=== PATIENT | male | born 1975 | race American Indian/Alaskan Native ===

== ENCOUNTER 2017-02-10 16:00 | Emergency (ER) | payer SELFPAY ==
[2017-02-10 16:15] VITALS: BP 151/94
[2017-02-10] MEDS ORDERED: NARCAN 2 MG/2 ML ONE (16:47)
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
[2017-02-10] MEDS ORDERED: ZITHROMAX PO ONE (20:10)
[2017-02-10] MEDS ORDERED: ROCEPHIN IM ONE (20:10)
[2017-02-10] MEDS ORDERED: XYLOCAINE 1% MPF 5 mL INFILTRATI ONE (20:10)
[2017-02-10 20:26] LABS: Bilirubin,Urine NEG (Negative); Blood,Urine MOD (Negative); Ketones,Urine NEG (Negative); Leukocyte Esterase,Urine LG (Negative); Mucus,Urine 1+ /HPF; Nitrite,Urine NEG (Negative); Urobilinogen,Urine < 2.0 mg/dL (<2.0)
[2017-02-10 20:28] LABS: WBC,Urine > 182.0 /HPF (0.0-6.0)
== END 2017-02-10 20:58 | disposition home or self-care (01) ==
LOC: ED 16:00
DX: N39.0 Urinary tract infection, site not specified (principal); F17.200 Nicotine dependence, unspecified, uncomplicated
CPT/HCPCS: 81001; 87591; 96372; 99283; J0696; J2310

== ENCOUNTER 2017-04-30 16:06 | Emergency (ER) | payer OTHER ==
[2017-04-30 16:33] VITALS: BP 144/92
[2017-04-30] MEDS ORDERED: BOOSTRIX IM ONE (18:21)
[2017-04-30] MEDS ORDERED: MOTRIN PO ONE (18:22)
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
== END 2017-04-30 19:37 | disposition home or self-care (01) ==
LOC: ED 16:06
DX: S00.81XA Abrasion of other part of head, initial encounter (principal); Z88.8 Allergy status to other drugs, medicaments and biological substances; Y04.1XXA Assault by human bite, initial encounter; Y93.89 Activity, other specified; Y92.89 Other specified places as the place of occurrence of the external cause; Y99.8 Other external cause status
CPT/HCPCS: 90471; 90715; 99282

== ENCOUNTER 2018-04-07 19:24 | Emergency (ER) | payer OTHER ==
[2018-04-07 19:32] VITALS: BP 139/77
[2018-04-07] MEDS ORDERED: TORADOL IM ONE (19:50)
[2018-04-07] MEDS ORDERED: TORADOL ONE (19:52)
[2018-04-08] MEDS ORDERED: PERCOCET 5/325 PO ONE (00:27)
[2018-04-08] MEDS ORDERED: FLEXERIL PO ONE (00:31)
--- NOTE | 2018-04-08 00:40 | Emergency Department Report ---
ED Back Pain/Injury HPI - General Chief Complaint: Back Pain/Injury Stated Complaint: BACK PAIN Time Seen by Provider: 04/08/18 00:27 Source: patient Limitations: No Limitations - History of Present Illness Initial Comments: 42-year-old -Hung[place] male comes in complaining of right sided lower back pain onset yesterday. Patient denies any trauma or falls. 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 He reports that he made an attempt to go to work yesterday and started having lower back pain to the right he took an Aleve to take Tylenol and ibuprofen with no relief. Patient was given Toradol and triage and reports no relief of his pain. Patient denies any urinary or bowel incontinence or issues. MD Complaint: back pain -: days(s) (2) Similar Symptoms Previously: No Place: work Radiation: none Severity scale (0 -10): 8 Quality: sharp Consistency: constant Improves With: none Worsens With: movement Associated Symptoms: denies other symptoms Treatments Prior to Arrival: NSAIDS, acetaminophen - Related Data Previous Rx's Medication Instructions Recorded Last Taken Type Ciprofloxacin HCl [Ciprofloxacin 500 mg PO Q12HR #20 tab 02/10/17 Unknown Rx TAB] Amoxicillin/K Clav Tab [Augmentin 1 tab PO Q12HR 10 Days tab 04/30/17 Unknown Rx 875 mg] Cyclobenzaprine [Flexeril] 10 mg PO TID PRN #15 tablet 04/08/18 Unknown Rx Ibuprofen [Motrin 800 MG tab] 800 mg PO Q8HR PRN #30 tablet 04/08/18 Unknown Rx Nitrofurantoin Monohyd/M-Cryst 100 mg PO BID 7 Days #14 capsule 04/08/18 Unknown Rx [Macrobid 100 mg Capsule] Allergies Allergy/AdvReac Type Severity Reaction Status Date / Time promethazine HCl Allergy Swelling Verified 02/10/17 16:06 [From Phenergan] ED Review of Systems ROS: Stated complaint: BACK PAIN Other details as noted in HPI Gastrointestinal: denies: abdominal pain, nausea, diarrhea Genitourinary: denies: urgency, dysuria, frequency, hematuria, discharge Musculoskeletal: back pain Skin: denies: rash, lesions ED Past Medical Hx - Past Medical History Previous Medical History?: Yes Additional medical history: Bronchitis - Surgical History Past Surgical History?: No - Social History Smoking Status: Light Tobacco Smoker Substance Use Type: Alcohol - Medications Home Medications: Home Medications Medication Instructions Recorded Confirmed Last Taken Type Ciprofloxacin HCl [Ciprofloxacin 500 mg PO Q12HR #20 tab 02/10/17 Unknown Rx TAB] Amoxicillin/K Clav Tab [Augmentin 1 tab PO Q12HR 10 Days tab 04/30/17 Unknown Rx 875 mg] Cyclobenzaprine [Flexeril] 10 mg PO TID PRN #15 tablet 04/08/18 Unknown Rx Ibuprofen [Motrin 800 MG tab] 800 mg PO Q8HR PRN #30 tablet 04/08/18 Unknown Rx Nitrofurantoin Monohyd/M-Cryst 100 mg PO BID 7 Days #14 capsule 04/08/18 Unknown Rx [Macrobid 100 mg Capsule] ED Physical Exam - General Limitations: No Limitations General appearance: alert, in no apparent distress - Head Head exam: Present: atraumatic, normocephalic - ENT ENT exam: Present: mucous membranes moist - Respiratory Respiratory exam: Present: normal lung sounds bilaterally. Absent: respiratory distress - Cardiovascular Cardiovascular Exam: Present: regular rate, normal rhythm. Absent: systolic murmur, diastolic murmur, rubs, gallop - Back Exam Back exam: Present: CVA tenderness (R) - Expanded Back Exam Expanded Back exam: Positive Straight Leg Raise: Right (cross legged positive) - Neurological Exam Neurological exam: Present: alert, oriented X3 ED Course Vital Signs 04/07/18 04/07/18 04/07/18 19:24 19:40 19:55 Temperature 98.4 F 98.4 F Pulse Rate 79 78 Respiratory 16 16 18 Rate Blood Pressure 139/77 139/77 O2 Sat by Pulse 94 96 Oximetry ED Medical Decision Making - Radiology Data Radiology results: report reviewed, image reviewed FINAL REPORT EXAM: XR SPINE LUMBOSACRAL 2-3V HISTORY: back pain that is not responding to meds COMPARISON: None available. FINDINGS: Three views of the lumbar spine obtained. Lumbar vertebral body heights are preserved. Mild loss of disc height endplate osteophyte L5-S1 level. Mild loss of disc height endplate osteophyte T12-L1 level. Remaining disc heights are preserved. Pedicles are intact. No spondylolisthesis. IMPRESSION: Mild focal degenerative changes at the T12-L1 and L5-S1 levels. Transcribed By: LMA Dictated By: ENZO AVELAR MD Electronically Authenticated By: ENZO AVELAR MD Signed Date/Time: 04/08/1846 DD/ TD/TT: 04/08/1846 - Medical Decision Making Patient has been evaluated but this provider fast track. Patient is given Toradol 30 mg IM in triage with no relief. Flexeril 10 mg Percocet 5/325 2 tablets ordered for pain management. X-ray of back and urinalysis sent. Critical care attestation.: If time is entered above; I have spent that time in minutes in the direct care of this critically ill patient, excluding procedure time. ED Disposition Clinical Impression: Back pain Qualifiers: Back pain location: low back pain Chronicity: acute Back pain laterality: right Sciatica presence: without sciatica Qualified Code(s): M54.5 - Low back pain UTI (urinary tract infection) Qualifiers: Urinary tract infection type: acute cystitis Hematuria presence: without hematuria Qualified Code(s): N30.00 - Acute cystitis without hematuria Disposition: TO HOME OR SELFCARE Is pt being admited?: No Does the pt Need Aspirin: No Condition: Stable Instructions: Low Back Strain (ED), Back Pain (ED) Additional Instructions: Please take pain medication as prescribed. Please follow-up with the primary care provider if her symptoms persist or gets worse. Prescriptions: Cyclobenzaprine [Flexeril] 10 mg PO TID PRN #15 tablet PRN Reason: Muscle Spasm Ibuprofen [Motrin 800 MG tab] 800 mg PO Q8HR PRN #30 tablet PRN Reason: Pain , Severe (7-10) Nitrofurantoin Monohyd/M-Cryst [Macrobid 100 mg Capsule] 100 mg PO BID 7 Days # 14 capsule Referrals: PRIMARY CAREMD [Primary Care Provider] - 3-5 Days [facility] [Provider Group] - 3-5 Days Forms: Work/School Release Form(ED), Accompanied Note
--- NOTE | 2018-04-08 00:52 | XRay Report ---
FINAL REPORT EXAM: XR SPINE LUMBOSACRAL 2-3V HISTORY: back pain that is not responding to meds COMPARISON: None available. FINDINGS: Three views of the lumbar spine obtained. Lumbar vertebral body heights are preserved. Mild loss of disc height endplate osteophyte L5-S1 level. Mild loss of disc height endplate osteophyte T12-L1 level. Remaining disc heights are preserved. Pedicles are intact. No spondylolisthesis. IMPRESSION: Mild focal degenerative changes at the T12-L1 and L5-S1 levels.
[2018-04-08 01:50] LABS: Bilirubin,Urine NEG (Negative); Blood,Urine NEG (Negative); Color,Urine Yellow (Yellow); Hyaline Casts,Urine 16 /LPF; Mucus,Urine 3+ /HPF
== END 2018-04-08 02:25 | disposition home or self-care (01) ==
LOC: ED 19:24
DX: M54.5 Low back pain (principal); N30.00 Acute cystitis without hematuria; Z88.8 Allergy status to other drugs, medicaments and biological substances
CPT/HCPCS: 72100; 81001; 96372; 99284; J1885

== ENCOUNTER 2020-08-24 22:15 | Inpatient (IN) | payer SELFPAY ==
[2020-08-25 00:28] LABS: Lymphocytes # (Auto) 0.8 K/mm3 (1.2-5.4); Mean Corpuscular HGB Conc 29 % (32-34); Mean Corpuscular Volume 108 fl (84-94); Monocytes # (Auto) 0.6 K/mm3 (0.0-0.8); Monocytes % (Auto) 4.9 % (0.0-7.3); Platelet Count 195 K/mm3 (140-440); Red Blood Count 5.02 M/mm3 (3.65-5.03); Red Cell Distribution Width 14.6 % (13.2-15.2)
[2020-08-25 00:35] LABS: Hemoglobin 15.7 gm/dl (11.8-15.2)
[2020-08-25 00:36] LABS: Hematocrit 45.1 % (35.5-45.6)
[2020-08-25 00:47] LABS: Calcium 11.2 mg/dL (8.4-10.2)
[2020-08-25] MEDS ORDERED: SODIUM CHLORIDE 0.9% 1000 ML 2,000 ML ONE (01:25)
[2020-08-25 01:30] LABS: Bilirubin,Urine NEG (Negative); Blood,Urine SM (Negative); Color,Urine Colorless (Yellow); Mucus,Urine FEW /HPF; Protein,Urine <15 mg/dL mg/dL (Negative); Urobilinogen,Urine < 2.0 mg/dL (<2.0)
[2020-08-25] MEDS ORDERED: SODIUM CHLORIDE 0.9% 1000 ML 2,000 ML IV ONE (01:44)
[2020-08-25] MEDS ORDERED: INSULIN REGULAR, HUMAN 100 UNIT/ML 3ML VIAL IV ONE (01:44)
[2020-08-25] MEDS ORDERED: DEXTROSE 50% IN WATER (25GM) 50 ML SYRINGE IV PRN (01:44)
[2020-08-25] MEDS ORDERED: ONDANSETRON 4 MG/2 ML INJ IV ONE (01:44)
--- NOTE | 2020-08-25 01:51 | Emergency Department Report ---
ED General Adult HPI - General Chief complaint: Pain General Stated complaint: DEHYDRATED PUI?: No Time Seen by Provider: 08/25/20 01:22 Source: patient, RN notes reviewed, old records reviewed Mode of arrival: Ambulatory Limitations: No Limitations - History of Present Illness Initial comments: The patient was evaluated in the emergency department for symptoms described in the history of present illness. He/she was evaluated in the context of the global COVID-19 pandemic, which necessitated consideration that the patient m ight be at risk for infection with the virus that causes COVID-19. Institutional protocols and algorithms that pertain to the evaluation of patients at risk for COVID-19 are in a state of rapid change based on information released by regulatory bodies including the CDC and federal and state organizations. These policies and algorithms were followed during the patient's care in the emergency department. Please note that these policies, procedures and recommendations changed on a rapid basis. The patient is a 45-year-old gentleman. He is not known to myself previously. He does not have a primary care doctor he does not have chronic medical conditions. He denies fever, loss of taste, loss of taste smell, and Covid exposure. He presents to the ER today with a complaint of "I feel dehydrated." He endorses dry tongue, unintentional weight loss, polyuria, nausea, malaise and fatigue. He denies physical pain. He denies dysuria. Positive nausea. No diarrhea. No chest pain, no shortness of breath. Symptoms constant, do not radiate anywhere, do not have exacerbating relieving factors that he is aware of. -: Gradual, days(s) Consistency: constant Improves with: none Worsens with: none - Related Data Previous Rx's Medication Instructions Recorded Last Taken Type Ciprofloxacin HCl [Ciprofloxacin 500 mg PO Q12HR #20 tab 02/10/17 Unknown Rx TAB] Amoxicillin/K Clav Tab [Augmentin 1 tab PO Q12HR 10 Days tab 04/30/17 Unknown Rx 875 mg] Cyclobenzaprine [Flexeril] 10 mg PO TID PRN #15 tablet 04/08/18 Unknown Rx Ibuprofen [Motrin 800 MG tab] 800 mg PO Q8HR PRN #30 tablet 04/08/18 Unknown Rx Nitrofurantoin Monohyd/M-Cryst 100 mg PO BID 7 Days #14 capsule 04/08/18 Unknown Rx [Macrobid 100 mg Capsule] Amlodipine Besylate [Norvasc] 5 mg PO DAILY #30 tablet 12/15/19 Unknown Rx Fluticasone [Flonase] 1 spray NS QDAY #1 bottle 12/15/19 Unknown Rx Allergies Allergy/AdvReac Type Severity Reaction Status Date / Time promethazine HCl Allergy Swelling Verified 02/10/17 16:06 [From Phenergan] ED Review of Systems ROS: Stated complaint: DEHYDRATED Other details as noted in HPI Constitutional: malaise, weakness. denies: fever Eyes: denies: eye discharge ENT: denies: congestion Respiratory: denies: cough Cardiovascular: denies: chest pain Gastrointestinal: abdominal pain, nausea Genitourinary: denies: dysuria Musculoskeletal: denies: back pain Skin: denies: lesions Neurological: weakness Psychiatric: anxiety Hematological/Lymphatic: denies: easy bleeding ED Past Medical Hx - Past Medical History Previous Medical History?: Yes Additional medical history: Bronchitis - Surgical History Past Surgical History?: No - Social History Smoking Status: Current Every Day Smoker Substance Use Type: None - Medications Home Medications: Home Medications Medication Instructions Recorded Confirmed Last Taken Type Ciprofloxacin HCl [Ciprofloxacin 500 mg PO Q12HR #20 tab 02/10/17 Unknown Rx TAB] Amoxicillin/K Clav Tab [Augmentin 1 tab PO Q12HR 10 Days tab 04/30/17 Unknown Rx 875 mg] Cyclobenzaprine [Flexeril] 10 mg PO TID PRN #15 tablet 04/08/18 Unknown Rx Ibuprofen [Motrin 800 MG tab] 800 mg PO Q8HR PRN #30 tablet 04/08/18 Unknown Rx Nitrofurantoin Monohyd/M-Cryst 100 mg PO BID 7 Days #14 capsule 04/08/18 Unknown Rx [Macrobid 100 mg Capsule] Amlodipine Besylate [Norvasc] 5 mg PO DAILY #30 tablet 12/15/19 Unknown Rx Fluticasone [Flonase] 1 spray NS QDAY #1 bottle 12/15/19 Unknown Rx ED Physical Exam - General Limitations: No Limitations General appearance: alert, anxious, obese - Head Head exam: Present: atraumatic, normocephalic - Eye Eye exam: Present: normal appearance, EOMI. Absent: nystagmus - ENT ENT exam: Present: normal exam, normal orophraynx, mucous membranes dry, normal external ear exam - Neck Neck exam: Present: normal inspection, full ROM. Absent: tenderness, meningismus - Respiratory Respiratory exam: Present: normal lung sounds bilaterally. Absent: respiratory distress, wheezes, rales, rhonchi, stridor, decreased breath sounds - Cardiovascular Cardiovascular Exam: Present: normal rhythm, tachycardia, normal heart sounds. Absent: systolic murmur, diastolic murmur, rubs, gallop - GI/Abdominal GI/Abdominal exam: Present: soft. Absent: distended, tenderness, guarding, rebound, rigid, pulsatile mass - Rectal Rectal exam: Present: deferred - Extremities Exam Extremities exam: Present: normal inspection, full ROM, other (2+ pulses noted in the bilateral upper and lower extremities. There is no palpable cord. negative Homans sign. Muscular compartments are soft. The pelvis is stable.). Absent: pedal edema, calf tenderness - Back Exam Back exam: Present: normal inspection, full ROM. Absent: tenderness, CVA tenderness (R), CVA tenderness (L), paraspinal tenderness, vertebral tenderness - Neurological Exam Neurological exam: Present: alert, other (No facial droop. Tongue midline. Extraocular movements intact bilaterally. Facial sensation intact to light touch in V1, V2, V3 distribution bilaterally. 5 and a 5 strength in 4 extremities. Sensation intact to light touch in 4 extremities.) - Psychiatric Psychiatric exam: Present: anxious - Skin Skin exam: Present: warm, dry, intact, normal color. Absent: rash ED Course Vital Signs 08/24/20 23:36 Temperature 98.4 F Pulse Rate 114 H Respiratory 18 Rate Blood Pressure 151/108 O2 Sat by Pulse 95 Oximetry ED Medical Decision Making - Lab Data Result diagrams: 08/24/20 23:50 08/25/20 01:59 Vital Signs 08/24/20 23:36 Temperature 98.4 F Pulse Rate 114 H Respiratory 18 Rate Blood Pressure 151/108 O2 Sat by Pulse 95 Oximetry Lab Results 08/24/20 08/24/20 08/24/20 Range/Units 23:50 23:50 Unknown WBC 11.5 H (4.5-11.0) K/mm3 RBC 5.02 (3.65-5.03) M/mm3 Hgb 15.7 H (11.8-15.2) gm/dl Hct 45.1 (35.5-45.6) % MCV 108 H (84-94) fl MCH 31 (28-32) pg MCHC 29 L (32-34) % RDW 14.6 (13.2-15.2) % Plt Count 195 (140-440) K/mm3 Lymph % (Auto) 7.0 L (13.4-35.0) % [place] % (Auto) 4.9 (0.0-7.3) % Eos % (Auto) 0.0 (0.0-4.3) % Baso % (Auto) 0.0 (0.0-1.8) % Lymph # (Auto) 0.8 L (1.2-5.4) K/mm3 [place] # (Auto) 0.6 (0.0-0.8) K/mm3 Eos # (Auto) 0.0 (0.0-0.4) K/mm3 Baso # (Auto) 0.0 (0.0-0.1) K/mm3 Seg Neutrophils % 88.1 H (40.0-70.0) % Seg Neutrophils # 10.1 H (1.8-7.7) K/mm3 Sodium 123 L (137-145) mmol/L Potassium 5.2 H (3.6-5.0) mmol/L Chloride 79.0 L (98-107) mmol/L Carbon Dioxide 25 (22-30) mmol/L Anion Gap 24 mmol/L BUN 32 H (9-20) mg/dL Creatinine 1.8 H (0.8-1.3) mg/dL Estimated GFR 50 ml/min BUN/Creatinine Ratio 18 % Glucose 1624 H* (75-100) mg/dL Calcium 11.2 H (8.4-10.2) mg/dL Urine Color Colorless (Yellow) Urine Turbidity Clear (Clear) Urine pH 5.0 (5.0-7.0) Ur Specific [place] 1.027 (1.003-1.030) Urine Protein <15 mg/dl (Negative) mg/dL Urine Glucose (UA) >=500 (Negative) mg/dL Urine Ketones Tr (Negative) mg/dL Urine Blood Sm (Negative) Urine Nitrite Neg (Negative) Urine Bilirubin Neg (Negative) Urine Urobilinogen < 2.0 (<2.0) mg/dL Ur Leukocyte Esterase Neg (Negative) Urine WBC (Auto) 4.0 (0.0-6.0) /HPF Urine RBC (Auto) 1.0 (0.0-6.0) /HPF Urine Mucus Few /HPF - EKG Data -: EKG Interpreted by Me EKG shows normal: sinus rhythm Rate: normal - EKG Data When compared to previous EKG there are: previous EKG unavailable 08/25/20 01:52 Sinus rhythm, 93 bpm, normal axis, normal intervals, minimal motion artifact, borderline high left ventricular voltage, the EKG is not a STEMI, there is no EKG available for comparison. - Medical Decision Making Differential diagnosis, including but not limited to: Diabetic ketoacidosis, h yperosmolar state, renal insufficiency, dehydration, electrolyte derangement Assessment and plan: 45-year-old gentleman with dehydration, dry mucous membranes, polyuria, polydipsia, unintentional weight loss, glucose of 1600, anion gap, renal insufficiency. Meets criteria for hospitalization secondary to aforementioned metabolic derangement. He is afebrile, with reassuring vital signs with the exception of tachycardia, speaking in full sentences, protecting his airway, with a nonfocal motor examination. Do not clinically suspect Covid pneumonia at this time. We have recommended admission to the medical service for initiation of IV fluids and insulin drip. The patient is amenable to this plan of care. Hospital physician, Dr. Stephanie Milan to admit Given normal mentation, I suspect that patient is a chronic undiagnosed diabetic, it sounds like the exacerbating/inciting factor here are recent dietary indiscretions. Hyponatremia is likely pseudohyponatremia, likely secondary to marked hyperglycemia. Critical Care Time: Yes Critical care time in (mins) excluding proc time.: 35 Critical care attestation.: If time is entered above; I have spent that time in minutes in the direct care of this critically ill patient, excluding procedure time. ED Disposition Clinical Impression: DKA (diabetic ketoacidoses), Renal insufficiency, Dehydration Disposition: OP ADMIT IP TO THIS HOSP Is pt being admited?: Yes Does the pt Need Aspirin: No Condition: Critical
[2020-08-25] MEDS ORDERED: D5W/0.45% NACL/KCL 20 MEQ 20 MEQ/1,000 ML BAG IV SCH (02:00)
[2020-08-25] MEDS ORDERED: INSULIN REGULAR, HUMAN 100 UNITS in SODIUM CHLORIDE 0.9% 99 ML IV SCH (02:00)
[2020-08-25] MEDS ORDERED: INSULIN REGULAR, HUMAN 100 UNIT/ML 3ML VIAL ONE (02:26)
[2020-08-25] MEDS ORDERED: ONDANSETRON 4 MG/2 ML INJ ONE (02:27)
[2020-08-25 02:42] LABS: Calcium 10.8 mg/dL (8.4-10.2)
[2020-08-25] MEDS ORDERED: MORPHINE 2 MG/1 ML INJ IV PRN (03:02)
[2020-08-25] MEDS ORDERED: ONDANSETRON 4 MG/2 ML INJ IV PRN (03:02)
--- NOTE | 2020-08-25 03:11 | History and Physical Report ---
History of Present Illness Date of examination: 08/25/20 Date of admission: 08/25/20 01:51 Chief complaint: Malaise Fatigue History of present illness: 45-year-old -[place] male with no significant past medical problems presenting to the emergency room today with complaints of been dehydrated. He states he has been having dry mouth, polyuria, polydipsia, nausea and vomiting and generalized malaise. He also indicates that he has been having unintentiona l weight loss. He denies any fever or chills, no chest pain or shortness of breath, no headache or dizziness. 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 Denies any sick contacts and no recent travel. Denies any contact with anyone with COVID-19. Upon arrival in the emergency room today blood sugar was found to be over 1000. He was found to be in DKA. He admits that both of his parents diabetic. Patient has been started on insulin drip and and IV fluid. Past History Past Medical History: No medical history Past Surgical History: No surgical history Social history: no significant social history Family history: diabetes (In both Parents) Medications and Allergies Allergies Allergy/AdvReac Type Severity Reaction Status Date / Time promethazine HCl Allergy Swelling Verified 02/10/17 16:06 [From Phenergan] Home Medications Medication Instructions Recorded Confirmed Last Taken Type Ciprofloxacin HCl [Ciprofloxacin 500 mg PO Q12HR #20 tab 02/10/17 Unknown Rx TAB] Amoxicillin/K Clav Tab [Augmentin 1 tab PO Q12HR 10 Days tab 04/30/17 Unknown Rx 875 mg] Cyclobenzaprine [Flexeril] 10 mg PO TID PRN #15 tablet 04/08/18 Unknown Rx Ibuprofen [Motrin 800 MG tab] 800 mg PO Q8HR PRN #30 tablet 04/08/18 Unknown Rx Nitrofurantoin Monohyd/M-Cryst 100 mg PO BID 7 Days #14 capsule 04/08/18 Unknown Rx [Macrobid 100 mg Capsule] Amlodipine Besylate [Norvasc] 5 mg PO DAILY #30 tablet 12/15/19 Unknown Rx Fluticasone [Flonase] 1 spray NS QDAY #1 bottle 12/15/19 Unknown Rx Active Meds: Active Medications Dextrose (D50w (25gm) Syringe) 0 ml IV Q30MIN PRN; Protocol PRN Reason: Hypoglycemia Heparin Sodium (Porcine) (Heparin) 5,000 unit SUB-Q Q8HR [facility] Insulin Human Regular 100 (units/ Sodium Chloride) 100 mls @ 1 mls/hr IV TITR [facility]; Protocol Last Admin: 08/25/20 02:31 Dose: 1 units/hr, 1 mls/hr Documented by: Potassium Chloride/Dextrose/Sod Cl (D5w/0.45% Nacl/Kcl 20 Meq) 20 meq in 1,000 mls @ 125 mls/hr IV DIRECT LOGAN Sodium Chloride (Nacl 0.9% 1000 Ml) 1,000 mls @ 150 mls/hr IV DIRECT LOGAN Morphine Sulfate (Morphine) 2 mg IV Q4H PRN PRN Reason: Pain, Moderate (4-6) Ondansetron HCl (Zofran) 4 mg IV Q8H PRN PRN Reason: Nausea And Vomiting Sodium Chloride (Sodium Chloride Flush Syringe 10 Ml) 10 ml IV BID LOGAN Sodium Chloride (Sodium Chloride Flush Syringe 10 Ml) 10 ml IV PRN PRN PRN Reason: LINE FLUSH Review of Systems Constitutional: malaise, lethargy, no fever, no chills Ears, nose, mouth and throat: no nasal congestion, no sore throat Cardiovascular: no chest pain, no palpitations Respiratory: no cough, no shortness of breath, no wheezing Gastrointestinal: nausea, vomiting, no abdominal pain, no diarrhea Genitourinary Male: urinary frequency, no dysuria, no hematuria, no nocturia Musculoskeletal: no neck pain, no low back pain Integumentary: no rash, no pruritis Neurological: no headaches, no confusion Psychiatric: no anxiety, no depression Endocrine: polydipsia, polyuria, weight change, fatigue Exam - Constitutional Vitals: Temp Pulse Resp BP Pulse Ox 98.4 F 114 H 18 151/108 95 08/24/20 23:36 08/24/20 23:36 08/24/20 23:36 08/24/20 23:36 08/24/20 23:36 General appearance: Present: no acute distress, well-nourished, other (Dry Oral Mucosa) - EENT Eyes: Present: PERRL, EOM intact. Absent: scleral icterus ENT: hearing intact, clear oral mucosa, dentition normal - Neck Neck: Present: supple, normal ROM - Respiratory Respiratory effort: normal Respiratory: bilateral: CTA - Cardiovascular Rhythm: regular Heart Sounds: Present: S1 & S2. Absent: gallop, systolic murmur, diastolic murmur, rub - Extremities Extremities: no ischemia, pulses intact, pulses symmetrical, No edema, Full ROM Peripheral Pulses: within normal limits - Abdominal General gastrointestinal: Present: soft, non-tender, non-distended, normal bowel sounds. Absent: mass - Integumentary Integumentary: Present: clear, warm, dry. Absent: rash - Musculoskeletal Musculoskeletal: strength equal bilaterally - Psychiatric Psychiatric: appropriate mood/affect, intact judgment & insight, memory intact, cooperative - Neurologic Neurologic: CNII-XII intact, no focal deficits, moves all extremities Results - Labs CBC & Chem 7: 08/24/20 23:50 08/25/20 03:48 Labs: Abnormal lab results 08/24/20 08/24/20 08/25/20 Range/Units 23:50 23:50 01:59 WBC 11.5 H (4.5-11.0) K/mm3 Hgb 15.7 H (11.8-15.2) gm/dl MCV 108 H (84-94) fl MCHC 29 L (32-34) % Lymph % (Auto) 7.0 L (13.4-35.0) % Lymph # (Auto) 0.8 L (1.2-5.4) K/mm3 Seg Neutrophils % 88.1 H (40.0-70.0) % Seg Neutrophils # 10.1 H (1.8-7.7) K/mm3 VBG pH (7.320-7.420) Sodium 123 L (137-145) mmol/L Potassium 5.2 H (3.6-5.0) mmol/L Chloride 79.0 L (98-107) mmol/L BUN 32 H (9-20) mg/dL Creatinine 1.8 H (0.8-1.3) mg/dL Glucose 1624 H* (75-100) mg/dL Calcium 11.2 H (8.4-10.2) mg/dL Phosphorus (2.5-4.5) mg/dL Magnesium 2.50 H (1.7-2.3) mg/dL Total Creatine Kinase 574 H (55-170) units/L 08/25/20 08/25/20 Range/Units 01:59 01:59 WBC (4.5-11.0) K/mm3 Hgb (11.8-15.2) gm/dl MCV (84-94) fl MCHC (32-34) % Lymph % (Auto) (13.4-35.0) % Lymph # (Auto) (1.2-5.4) K/mm3 Seg Neutrophils % (40.0-70.0) % Seg Neutrophils # (1.8-7.7) K/mm3 VBG pH 7.316 L (7.320-7.420) Sodium 124 L (137-145) mmol/L Potassium 5.3 H (3.6-5.0) mmol/L Chloride 82.5 L (98-107) mmol/L BUN 31 H (9-20) mg/dL Creatinine 1.7 H (0.8-1.3) mg/dL Glucose 1405 H* (75-100) mg/dL Calcium 10.8 H (8.4-10.2) mg/dL Phosphorus 7.00 H (2.5-4.5) mg/dL Magnesium 2.60 H (1.7-2.3) mg/dL Total Creatine Kinase (55-170) units/L Assessment and Plan - Patient Problems (1) DKA (diabetic ketoacidoses) Current Visit: Yes Status: Acute Plan to address problem: Patient admitted to the intensive care unit. Started on insulin drip and IV fluid. (2) Renal insufficiency Current Visit: Yes Status: Acute Plan to address problem: We will monitor BUN and creatinine. We will continue IV fluid hydration. (3) DVT prophylaxis Current Visit: Yes Status: Acute Plan to address problem: Patient placed on subcutaneous heparin. (4) Full code status Current Visit: Yes Status: Acute
[2020-08-25] MEDS ORDERED: SODIUM CHLORIDE 0.9% 1000 ML 1,000 ML IV SCH ×3 (03:15→22:30)
[2020-08-25 04:17] LABS: BUN/Creatinine Ratio 19; Blood Urea Nitrogen 28 mg/dL (9-20); Calcium 10.6 mg/dL (8.4-10.2); Hemolysis Index 9
[2020-08-25] MEDS ORDERED: SODIUM CHLORIDE 0.9% 1000 ML 1,000 ML ONE (04:32)
[2020-08-25 05:15] LABS: Chol/HDL Ratio 3.71 %
[2020-08-25 06:35] LABS: Calcium 11.4 mg/dL (8.4-10.2)
[2020-08-25] MEDS ORDERED: HEPARIN 5,000 UNIT/1 ML VIAL ONE ×2 (06:43→16:19)
[2020-08-25] MEDS: HEPARIN 5,000 UNIT/1 ML VIAL SUB-Q SCH ×3 (06:50→22:50)
[2020-08-25 11:21] LABS: BUN/Creatinine Ratio 17; Blood Urea Nitrogen 25 mg/dL (9-20); Calcium 11.2 mg/dL (8.4-10.2); Hemolysis Index 11
[2020-08-25 11:22] LABS: BUN/Creatinine Ratio 16; Blood Urea Nitrogen 23 mg/dL (9-20); Calcium 11.1 mg/dL (8.4-10.2); Hemolysis Index 18
[2020-08-25] MEDS: amLODIPine 10 MG TAB PO SCH (12:04)
--- NOTE | 2020-08-25 16:05 | Progress Note ---
Assessment and Plan - Patient Problems (1) DKA (diabetic ketoacidoses) Current Visit: Yes Status: Acute Qualifiers: Diabetes mellitus type: type 1 Plan to address problem: Much improved Discontinue IV Insulin IV fluids Started on Novolin 70/30 25 units bid Educated on Diabetes Mellitus Diet exercise advised (2) Dehydration Current Visit: Yes Status: Acute Plan to address problem: IV fluids for now (3) MATEUSZ (acute kidney injury) Current Visit: Yes Status: Acute Plan to address problem: IV fluids for now Improved (4) Hyponatremia Current Visit: Yes Status: Acute Plan to address problem: Improved (5) Hyperkalemia Current Visit: Yes Status: Acute Plan to address problem: Improved (6) DVT prophylaxis Current Visit: Yes Status: Acute Plan to address problem: Heparin and GI prophylaxis Subjective Date of service: 08/25/20 Principal diagnosis: DKA Interval history: 45-year-old -[place] male with no significant past medical problems presenting to the emergency room today with complaints of been dehydrated. He states he has been having dry mouth, polyuria, polydipsia, nausea and vomiting and generalized malaise. He also indicates that he has been having unintentional weight loss. He denies any fever or chills, no chest pain or shortness of breath, no headache or dizziness. 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 Denies any sick contacts and no recent travel. Denies any contact with anyone with COVID-19. Upon arrival in the emergency room today blood sugar was found to be over 1000. He was found to be in DKA. He admits that both of his parents diabetic. Patient has been started on insulin drip and and IV fluid. Day #2 08/25/2020 Patient symptomatically better Some blurring of vision Less nausea, no vomiting Started on clear liquids Objective - Constitutional Vitals: Vital Signs - 12hr 08/25/20 08/25/20 08/25/20 04:00 04:30 05:00 Pulse Rate 82 Blood Pressure 131/81 122/68 116/68 O2 Sat by Pulse 93 92 92 Oximetry 08/25/20 08/25/20 08/25/20 05:30 06:00 06:30 Pulse Rate 76 Blood Pressure 122/87 111/73 136/78 O2 Sat by Pulse 88 93 Oximetry 08/25/20 12:04 Pulse Rate 105 H Blood Pressure 178/111 O2 Sat by Pulse Oximetry General appearance: Present: no acute distress, well-nourished - EENT Eyes: PERRL, EOM intact ENT: hearing intact, clear oral mucosa Ears: bilateral: normal - Neck Neck: supple, normal ROM - Respiratory Respiratory effort: normal Respiratory: bilateral: CTA - Breasts Breasts: normal - Cardiovascular Heart rate: 78 Rhythm: regular Heart Sounds: Present: S1 & S2. Absent: gallop, rub Extremities: pulses intact, No edema, normal color, Full ROM - Gastrointestinal General gastrointestinal: Present: soft, non-tender, non-distended, normal bowel sounds - Genitourinary Male genitourinary: normal - Integumentary Integumentary: clear, warm, dry - Musculoskeletal Musculoskeletal: 1, strength equal bilaterally - Neurologic Neurologic: moves all extremities - Psychiatric Psychiatric: memory intact, appropriate mood/affect, intact judgment & insight - Labs CBC & Chem 7: 08/24/20 23:50 08/26/20 01:50 Labs: Abnormal lab results 08/24/20 08/24/20 08/25/20 Range/Units 23:50 23:50 01:59 WBC 11.5 H (4.5-11.0) K/mm3 Hgb 15.7 H (11.8-15.2) gm/dl MCV 108 H (84-94) fl MCHC 29 L (32-34) % Lymph % (Auto) 7.0 L (13.4-35.0) % Lymph # (Auto) 0.8 L (1.2-5.4) K/mm3 Seg Neutrophils % 88.1 H (40.0-70.0) % Seg Neutrophils # 10.1 H (1.8-7.7) K/mm3 VBG pH (7.320-7.420) Sodium 123 L (137-145) mmol/L Potassium 5.2 H (3.6-5.0) mmol/L Chloride 79.0 L (98-107) mmol/L BUN 32 H (9-20) mg/dL Creatinine 1.8 H (0.8-1.3) mg/dL Glucose 1624 H* (75-100) mg/dL POC Glucose (70-105) mg/dL Hemoglobin A1c > 17.0 H (4-6) % Calcium 11.2 H (8.4-10.2) mg/dL Phosphorus (2.5-4.5) mg/dL Magnesium (1.7-2.3) mg/dL Total Creatine Kinase (55-170) units/L Triglycerides (2-149) mg/dL 08/25/20 08/25/20 08/25/20 Range/Units 01:59 01:59 01:59 WBC (4.5-11.0) K/mm3 Hgb (11.8-15.2) gm/dl MCV (84-94) fl MCHC (32-34) % Lymph % (Auto) (13.4-35.0) % Lymph # (Auto) (1.2-5.4) K/mm3 Seg Neutrophils % (40.0-70.0) % Seg Neutrophils # (1.8-7.7) K/mm3 VBG pH 7.316 L (7.320-7.420) Sodium 124 L (137-145) mmol/L Potassium 5.3 H (3.6-5.0) mmol/L Chloride 82.5 L (98-107) mmol/L BUN 31 H (9-20) mg/dL Creatinine 1.7 H (0.8-1.3) mg/dL Glucose 1405 H* (75-100) mg/dL POC Glucose (70-105) mg/dL Hemoglobin A1c (4-6) % Calcium 10.8 H (8.4-10.2) mg/dL Phosphorus 7.00 H (2.5-4.5) mg/dL Magnesium 2.50 H 2.60 H (1.7-2.3) mg/dL Total Creatine Kinase 574 H (55-170) units/L Triglycerides (2-149) mg/dL 08/25/20 08/25/20 08/25/20 Range/Units 03:48 03:48 05:58 WBC (4.5-11.0) K/mm3 Hgb (11.8-15.2) gm/dl MCV (84-94) fl MCHC (32-34) % Lymph % (Auto) (13.4-35.0) % Lymph # (Auto) (1.2-5.4) K/mm3 Seg Neutrophils % (40.0-70.0) % Seg Neutrophils # (1.8-7.7) K/mm3 VBG pH (7.320-7.420) Sodium 133 L D (137-145) mmol/L Potassium (3.6-5.0) mmol/L Chloride 95.6 L (98-107) mmol/L BUN 28 H 26 H (9-20) mg/dL Creatinine 1.5 H 1.6 H (0.8-1.3) mg/dL Glucose 913 H* 647 H* (75-100) mg/dL POC Glucose (70-105) mg/dL Hemoglobin A1c (4-6) % Calcium 10.6 H 11.4 H (8.4-10.2) mg/dL Phosphorus (2.5-4.5) mg/dL Magnesium 2.80 H (1.7-2.3) mg/dL Total Creatine Kinase (55-170) units/L Triglycerides 157 H (2-149) mg/dL 08/25/20 08/25/20 08/25/20 Range/Units 07:57 10:28 11:06 WBC (4.5-11.0) K/mm3 Hgb (11.8-15.2) gm/dl MCV (84-94) fl MCHC (32-34) % Lymph % (Auto) (13.4-35.0) % Lymph # (Auto) (1.2-5.4) K/mm3 Seg Neutrophils % (40.0-70.0) % Seg Neutrophils # (1.8-7.7) K/mm3 VBG pH (7.320-7.420) Sodium 146 H 148 H (137-145) mmol/L Potassium (3.6-5.0) mmol/L Chloride 108.3 H (98-107) mmol/L BUN 25 H 23 H (9-20) mg/dL Creatinine 1.5 H 1.4 H (0.8-1.3) mg/dL Glucose 429 H 252 H (75-100) mg/dL POC Glucose 247 H (70-105) mg/dL Hemoglobin A1c (4-6) % Calcium 11.2 H 11.1 H (8.4-10.2) mg/dL Phosphorus (2.5-4.5) mg/dL Magnesium (1.7-2.3) mg/dL Total Creatine Kinase (55-170) units/L Triglycerides (2-149) mg/dL 08/25/20 08/25/20 08/25/20 Range/Units 12:11 13:10 14:54 WBC (4.5-11.0) K/mm3 Hgb (11.8-15.2) gm/dl MCV (84-94) fl MCHC (32-34) % Lymph % (Auto) (13.4-35.0) % Lymph # (Auto) (1.2-5.4) K/mm3 Seg Neutrophils % (40.0-70.0) % Seg Neutrophils # (1.8-7.7) K/mm3 VBG pH (7.320-7.420) Sodium (137-145) mmol/L Potassium (3.6-5.0) mmol/L Chloride (98-107) mmol/L BUN (9-20) mg/dL Creatinine (0.8-1.3) mg/dL Glucose (75-100) mg/dL POC Glucose 153 H 224 H 272 H (70-105) mg/dL Hemoglobin A1c (4-6) % Calcium (8.4-10.2) mg/dL Phosphorus (2.5-4.5) mg/dL Magnesium (1.7-2.3) mg/dL Total Creatine Kinase (55-170) units/L Triglycerides (2-149) mg/dL
[2020-08-25] MEDS ORDERED: HYDROmorphone 1 MG/1 ML INJ IV PRN (16:07)
[2020-08-25] MEDS ORDERED: HYDROmorphone 1 MG/1 ML INJ ONE (16:52)
[2020-08-25] MEDS: INSULIN NPH/REGULAR 70/30 INJ SUB-Q SCH (17:38)
[2020-08-25 19:08] LABS: BUN/Creatinine Ratio 15; Blood Urea Nitrogen 19 mg/dL (9-20); Calcium 9.9 mg/dL (8.4-10.2); Hemolysis Index 26
[2020-08-25] MEDS: VALSARTAN 40 MG TAB PO SCH ×2 (19:44→22:26)
[2020-08-25] MEDS ORDERED: INSULIN LISPRO 100 UNIT/ML VIAL 3 mL SUB-Q ONE (22:18)
[2020-08-25] MEDS: INSULIN LISPRO 100 UNIT/ML VIAL 3 mL SUB-Q SCH (22:26)
[2020-08-25] MEDS: carvediloL 12.5 MG TAB FEEDTUBE SCH (22:26)
[2020-08-25] MEDS ORDERED: INSULIN GLARGINE 100 UNITS/ML SUB-Q ONE (23:00)
[2020-08-26] MEDS: INSULIN LISPRO 100 UNIT/ML VIAL 3 mL SUB-Q SCH ×4 (00:30→12:32)
[2020-08-26 02:47] LABS: BUN/Creatinine Ratio 13; Blood Urea Nitrogen 16 mg/dL (9-20); Calcium 9.4 mg/dL (8.4-10.2); Hemolysis Index 10
[2020-08-26] MEDS: HEPARIN 5,000 UNIT/1 ML VIAL SUB-Q SCH ×2 (06:34→13:34)
[2020-08-26] MEDS: INSULIN NPH/REGULAR 70/30 INJ SUB-Q SCH (08:40)
[2020-08-26] MEDS: carvediloL 12.5 MG TAB FEEDTUBE SCH (09:01)
[2020-08-26] MEDS: VALSARTAN 40 MG TAB PO SCH (09:02)
[2020-08-26] MEDS: amLODIPine 10 MG TAB PO SCH (09:03)
--- NOTE | 2020-08-26 11:59 | Discharge Summary ---
Providers - Providers Date of Admission: 08/25/20 01:51 Date of discharge: 08/26/20 Attending physician: CLAUDE DIEGO 08/25/20 03:02 Consult to Dietitian/Nutrition [CONS] Routine Physician Instructions: Reason For Exam: Reason for Consult: Diet education Primary care physician: [employer] Hospitalization Condition: Critical Hospital course: Subjective Date of service: 08/26/20 Principal diagnosis: DKA Interval history: 45-year-old -[place] male with no significant past medical problems presenting to the emergency room today with complaints of been dehydrated. He states he has been having dry mouth, polyuria, polydipsia, nausea and vomiting and generalized malaise. He also indicates that he has been having unintentional weight loss. He denies any fever or chills, no chest pain or shortness of breath, no headache or dizziness. 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 Denies any sick contacts and no recent travel. Denies any contact with anyone with COVID-19. Upon arrival in the emergency room today blood sugar was found to be over 1000. He was found to be in DKA. He admits that both of his parents diabetic. Patient has been started on insulin drip and and IV fluid. Day #2 08/25/2020 Patient symptomatically better Some blurring of vision Less nausea, no vomiting Started on clear liquids Day #3 08/26/2020 Patient feeling much better Blood glucose levels in the mid 300s Patient educated by me about diabetic ketoacidosis and management of insulin- dependent diabetes Patient was advised regular exercise and diet Patient to be discharged on Novolin 70/30 30 units twice a day and Metformin 500 twice a day and to follow-up with primary care in 1 week. Assessment and Plan - Patient Problems (1) DKA (diabetic ketoacidoses) Current Visit: Yes Status: Acute Qualifiers: Diabetes mellitus type: type 1 Plan to address problem: Much improved Discontinue IV Insulin IV fluids Started on Novolin 70/30 25 units bid Educated on Diabetes Mellitus Diet exercise advised (2) Dehydration Current Visit: Yes Status: Acute Plan to address problem: IV fluids for now (3) MATEUSZ (acute kidney injury) Current Visit: Yes Status: Acute Plan to address problem: IV fluids for now Improved (4) Hyponatremia Current Visit: Yes Status: Acute Plan to address problem: Improved (5) Hyperkalemia Current Visit: Yes Status: Acute Plan to address problem: Improved (6) DVT prophylaxis Current Visit: Yes Status: Acute Plan to address problem: Heparin and GI prophylaxis Disposition: DC-01 TO HOME OR SELFCARE - Discharge Diagnoses (1) DKA (diabetic ketoacidoses) Status: Acute Qualifiers: Diabetes mellitus type: type 1 (2) Dehydration Status: Acute (3) MATEUSZ (acute kidney injury) Status: Acute (4) Hyponatremia Status: Acute (5) Hyperkalemia Status: Acute (6) DVT prophylaxis Status: Acute Core Measure Documentation - Palliative Care Palliative Care/ Comfort Measures: Not Applicable - Core Measures Any of the following diagnoses?: none Exam - Constitutional Vitals: Temp Pulse Resp BP Pulse Ox 98.6 F 87 17 128/61 99 08/26/20 07:39 08/26/20 10:00 08/26/20 10:00 08/26/20 09:03 08/26/20 10:00 General appearance: Present: no acute distress, well-nourished - EENT Eyes: Present: PERRL ENT: hearing intact, clear oral mucosa - Neck Neck: Present: supple, normal ROM - Respiratory Respiratory effort: normal Respiratory: bilateral: CTA - Cardiovascular Heart rate: 78 Rhythm: regular Heart Sounds: Present: S1 & S2. Absent: rub, click - Extremities Extremities: pulses symmetrical, No edema Peripheral Pulses: within normal limits - Abdominal General gastrointestinal: Present: soft, non-tender, non-distended, normal bowel sounds Male genitourinary: Present: normal - Rectal Rectal Exam: deferred - Integumentary Integumentary: Present: clear, warm, dry - Musculoskeletal Musculoskeletal: gait normal, strength equal bilaterally - Psychiatric Psychiatric: appropriate mood/affect, intact judgment & insight - Neurologic Neurologic: CNII-XII intact, moves all extremities - Allied Health Allied health notes reviewed: nursing, case management Plan Activity: no restrictions Diet: diabetic Follow up with: PRIMARY CAREMD [Primary Care Provider] - 3-5 Days
[2020-08-26 12:24] VITALS: BP 131/78
== END 2020-08-26 14:21 | disposition home or self-care (01) | DRG 638 ==
LOC: ED 22:15 → CC1 08-25 01:51 → 4A 08-25 15:45
PROVIDERS: ADMIT Internal Medicine Geriatric Medicine; ATTEND Internal Medicine
DX: E10.10 Type 1 diabetes mellitus with ketoacidosis without coma (principal); N17.9 Acute kidney failure, unspecified; E87.1 Hypo-osmolality and hyponatremia; E86.0 Dehydration; Z88.8 Allergy status to other drugs, medicaments and biological substances; Z83.3 Family history of diabetes mellitus; Z79.4 Long term (current) use of insulin; E87.5 Hyperkalemia
CPT/HCPCS: 36415; 80048; 80061; 81001; 82550; 82805; 82947; 82962; 83036; 83735; 84100; 84443; 85025; 93005; 96372; 96374; 96375; G0378; J1170; J1644; J1815; J2405; J7030

== ENCOUNTER 2021-05-22 09:10 | Emergency (ER) | payer SELFPAY ==
--- NOTE | 2021-05-22 10:32 | Emergency Department Report ---
ED Lower Extremity HPI - General Chief Complaint: Extremity Injury, Lower Stated Complaint: NEEDS A WORK RELEASE/RT FOOT INJURY Time Seen by Provider: 05/22/21 10:25 Source: patient Mode of arrival: Ambulatory Limitations: No Limitations - History of Present Illness Initial Comments: 45-year-old male presents to the ER today with complaints of right foot pain. Patient states that he injured his right foot 2 days ago. Patient states that he was walking down the steps in his home and when he got to the bottom 2 steps his flip-flop slipped out from his feet causing him to twist his foot. He reports pain mainly to the lateral aspect of the foot. He states that he stayed home from work yesterday, and iced it and stretched it and he states that the pain has improved. He states that when he try to go back to work today, they would not approve him to come back until he had it checked out and got clearance to go back to work. He denies any apparent bruising or swelling. He denies any prior injury, surgery to his foot. He reports no other symptoms at this time. MD Complaint: foot injury -: days(s) (2) - Related Data Previous Rx's Medication Instructions Recorded Last Taken Type Ciprofloxacin HCl [Ciprofloxacin 500 mg PO Q12HR #20 tab 02/10/17 Unknown Rx TAB] Ibuprofen [Motrin 800 MG tab] 800 mg PO Q8HR PRN #30 tablet 04/08/18 Unknown Rx Amlodipine Besylate [Norvasc] 5 mg PO DAILY #30 tablet 12/15/19 Unknown Rx Aspirin [Aspirin BABY CHEW TAB] 81 mg PO QDAY #100 tab.chew 08/26/20 Unknown Rx Insulin NPH Hum/Reg Insulin Hm 30 unit SQ BID #2 vial 08/26/20 Unknown Rx [Novolin 70-30 100 Unit/ml Vial] Valsartan [Diovan] 160 mg PO Q12HR #60 tablet 08/26/20 Unknown Rx carvediloL [Coreg] 12.5 mg FEEDTUBE Q12HR 30 Days #60 08/26/20 Unknown Rx tablet metFORMIN [Glucophage] 500 mg PO BID #60 tablet 08/26/20 Unknown Rx Allergies Allergy/AdvReac Type Severity Reaction Status Date / Time promethazine HCl Allergy Swelling Verified 05/22/21 09:13 [From Phenergan] ED Review of Systems ROS: Stated complaint: NEEDS A WORK RELEASE/RT FOOT INJURY Other details as noted in HPI Comment: All other systems reviewed and negative Constitutional: denies: chills, fever Eyes: denies: eye pain, eye discharge, vision change ENT: denies: ear pain, throat pain, dental pain, hearing loss, epistaxis, congestion Musculoskeletal: joint swelling, arthralgia Skin: denies: rash, lesions, change in color, change in hair/nails, pruritus Neurological: denies: headache, weakness, paresthesias, confusion, abnormal gait, vertigo Psychiatric: denies: anxiety, depression, auditory hallucinations, visual hallucinations, homicidal thoughts, suicidal thoughts Hematological/Lymphatic: denies: easy bleeding, easy bruising, swollen glands ED Past Medical Hx - Past Medical History Previous Medical History?: Yes Hx Diabetes: Yes Additional medical history: Bronchitis - Surgical History Past Surgical History?: No - Social History Smoking Status: Current Every Day Smoker Substance Use Type: None - Medications Home Medications: Home Medications Medication Instructions Recorded Confirmed Last Taken Type Ciprofloxacin HCl [Ciprofloxacin 500 mg PO Q12HR #20 tab 02/10/17 08/25/20 Unknown Rx TAB] Ibuprofen [Motrin 800 MG tab] 800 mg PO Q8HR PRN #30 tablet 04/08/18 08/25/20 Unknown Rx Amlodipine Besylate [Norvasc] 5 mg PO DAILY #30 tablet 12/15/19 08/25/20 Unknown Rx Aspirin [Aspirin BABY CHEW TAB] 81 mg PO QDAY #100 tab.chew 08/26/20 Unknown Rx Insulin NPH Hum/Reg Insulin Hm 30 unit SQ BID #2 vial 08/26/20 Unknown Rx [Novolin 70-30 100 Unit/ml Vial] Valsartan [Diovan] 160 mg PO Q12HR #60 tablet 08/26/20 Unknown Rx carvediloL [Coreg] 12.5 mg FEEDTUBE Q12HR 30 Days #60 08/26/20 Unknown Rx tablet metFORMIN [Glucophage] 500 mg PO BID #60 tablet 08/26/20 Unknown Rx ED Physical Exam - General Limitations: No Limitations General appearance: alert, in no apparent distress - Head Head exam: Present: atraumatic, normocephalic, normal inspection - Eye Eye exam: Present: normal appearance, PERRL, EOMI Pupils: Present: normal accommodation - Neck Neck exam: Present: normal inspection, full ROM - Respiratory Respiratory exam: Present: normal lung sounds bilaterally. Absent: respiratory distress, wheezes, rales, rhonchi - Cardiovascular Cardiovascular Exam: Present: regular rate, normal rhythm, normal heart sounds - Expanded Lower Extremity Exam Right Foot/Toe exam: Present: normal inspection, full ROM, tenderness (Mild ttp lateral aspect of right foot including base of 5th metatarsal), tenderness at base of 5th metatarsal. Absent: swelling, abrasion, laceration, ecchymosis, deformity, crepidus, dislocation, erythema, amputation, puncture wound, foreign body, calcaneal tenderness, nail avulsion, subungual hematoma Neuro vascular tendon exam: Present: no vascular compromise. Absent: pulse deficit, abnormal cap refill, motor deficit, sensory deficit, tendon deficit Gait: Positive: observed and normal - Neurological Exam Neurological exam: Present: alert, oriented X3, CN II-XII intact, normal gait - Psychiatric Psychiatric exam: Present: normal affect, normal mood ED Course Vital Signs 05/22/21 09:15 Temperature 98.8 F Pulse Rate 80 Respiratory 18 Rate Blood Pressure 164/84 O2 Sat by Pulse 100 Oximetry Critical care attestation.: If time is entered above; I have spent that time in minutes in the direct care of this critically ill patient, excluding procedure time. ED Disposition Clinical Impression: Foot sprain Disposition: 01 HOME / SELF CARE / HOMELESS Is pt being admited?: No Does the pt Need Aspirin: No Condition: Stable Instructions: Foot Sprain Additional Instructions: I recommend taking ibuprofen (motrin) every 6-8 hours or tylenol (acetaminophen) 4 to 6 hours as needed for pain. You should be able to return to work today, just recommend that you elevate your leg during your breaks. You can apply ice to help with any swelling or pain. Follow-up with orientation and mobility specialist listed on your discharge instructions in 1 to 2 weeks if your symptoms persist. Return to the ER if your symptoms changes or worsens in any way. Referrals: CECILIA BUSTOS MD [Staff Physician] - 7-10 days (agriculture specialist) Time of Disposition: 11:14
--- NOTE | 2021-05-22 11:01 | XRay Report ---
Right foot radiograph, 3 views HISTORY: Fall COMPARISON: None FINDINGS: No acute fracture or malalignment. 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 Lisfranc interval is preserved. There is soft tissue swelling about the foot. No soft tissue gas or radiopaque foreign body. IMPRESSION: Soft tissue swelling about the foot. No acute osseous findings. Signer Name: Landon Monte MD Signed: 05/22/2021 10:57 AM Workstation Name: [id number]
[2021-05-22 11:46] VITALS: BP 133/92
== END 2021-05-22 12:24 | disposition home or self-care (01) ==
LOC: ED 09:10
DX: S93.691A Other sprain of right foot, initial encounter (principal); E11.9 Type 2 diabetes mellitus without complications; F17.200 Nicotine dependence, unspecified, uncomplicated; Z88.8 Allergy status to other drugs, medicaments and biological substances; Z79.4 Long term (current) use of insulin; Z79.82 Long term (current) use of aspirin; Z79.899 Other long term (current) drug therapy; W10.8XXA Fall (on) (from) other stairs and steps, initial encounter; Y93.89 Activity, other specified; Y92.89 Other specified places as the place of occurrence of the external cause; Y99.8 Other external cause status
CPT/HCPCS: 99283